=== PATIENT | female | born 1970 | race Caucasian/White ===

== ENCOUNTER 2017-04-07 15:03 | Emergency (ER) | payer MEDICAID ==
[~2017-04-07] VITALS: Ht 157.5 cm; Wt 79.4 kg
[~2017-04-07 15:03] MED LIST: AMOXICILLIN/CLA1 TA1 PO; LEVOTHYROXIN0.125 MG PO; MULTI VITAMINS1 TAB PO; PHENERGAN 25MG.25 M1 PO; VICODIN 5/500 T1 TAB PO
[2017-04-07] MEDS ORDERED: SERTRALINE25 MG PO (15:16)
[2017-04-07] MEDS ORDERED: LISINOPRIL5 MG PO (15:16)
--- NOTE | 2017-04-07 15:24 | Urgent Treatment Center Report ---
History of Present Issue Date/Time Seen by Provider 04/07/17 1521 Visit Reason Pt arrived:Walked Presenting Problem:PT STATES SHE FELL THIS MORNING AT 0800 AND HIT HER R PINKY ON THE DOOR FACING. STATES APPLYING ICE TO FINGER AND TAKING EXCEDERIN AT 1000 Location if Accident:Home Onset of symptoms date/time:04/07/17 or onset unknown for: Have you (or family members/close friends) recently traveled outside the [place]? N If Yes, where/when: Have you had exposure to infectious disease within the past month? TB? Other? Specify: Source patient, RN notes reviewed Exam Limitations no limitations Comment Patient presents with pain, bruising and swelling of right 5th digit. Fell around 0800 04/07/17 because she caught her toes on the underside of the step. She fell against the wall and pinky was pulled outwards. ALLERGIES Coded Allergies: No Known Allergies (04/07/17) Home Medications Reported Medications Levothyroxine Sodium (Levothyroxine 0.125MG) 0.115 MG PO DAILY Sertraline Hcl (Sertraline HCl) 25 MG PO DAILY Lisinopril 5 MG PO DAILY History Medical History General CAD? No Angina: No OR: No Hypertension? Yes Hyperlipidemia? No CHF? No DVT? No PE? No COPD? No Asthma? No Anemia? No GERD? No Gastric ulcers? No GI Bleed? No Hernia? No Thyroid Problems? Yes Hypothyroidism? Yes CVA? No Seizures? No Diabetes? No Renal Insuffiency? No UTI? No Stones? No BPH? No GB Disease: Yes Nephritic Syndrome? No Asplenia? No Hepatitis? No Sickle Cell Disease? No Arthritis? No Migraines? No Cataracts? No Glaucoma? No MRSA? No HIV? No TB? No Anxiety? No Cancer? No Immunization HX DT/Tetanus 01/28/10 Flu LAST YEAR Pneumonia NEVER Surgical Hx Previous Surgery?Y TUBAL LIGATION CERVIC. ABLASION 02-08-07 [place] LASIK EYE SURGERY Family History Family HX Diabetes No CAD Yes Hypertension No Cancer No TB No Social History Smoking Hx Smoker: Never Smoker Tobacco: No Alcohol Alcohol: No Review of Systems All Other Systems Reviewed and Negative Musculoskeletal see HPI, joint pain Physical Exam Vital Signs Vital Signs Date Time Temp Pulse Resp B/P Pulse O2 O2 Flow FiO2 Ox Delivery Rate 04/07 1514 97.7 79 18 118/81 97 General Appearance normal appearance Respiratory Status No: respiratory distress. Cardiovascular regular rate/rhythm Extremities right 5th digit bruised and swollen with painful palpation and ROM of both the DIP and PIP joints Neurologic alert, oriented x 3 Medical Decision Making LABS/Meds/Orders Pt receiving controlled substance in ED? No Results/Orders Orders Procedure Date/time Status HAND-RT 3 VIEWS 04/07 1519 Active XRAY/CT/US XRAY/CT/US XRAY finger(s) XR interpretation by reviewed by me (no fracture) Xray Results no fracture seen Departure Departure Time of Disposition 1537 Disposition DC Home or Self Care(routine) Clinical Impression Primary Impression: Injury of right little finger Qualifiers: Encounter type: initial encounter Qualified Code: S69.91XA - Unspecified injury of right wrist, hand and finger(s), initial encounter Condition STABLE Referrals Kasandra PAIGE,Calixto Collazo (Family) Patient Instructions DI for Finger Sprain Additional Instructions f/u with PCP if not improving & for official Xray results Discharge Counseling Counseled pt/family regarding diagnosis, test results, home care, follow up needs at 1530
[2017-04-07 15:46] VITALS: BP 118/81
--- NOTE | 2017-04-07 17:36 | RADIOLOGY REPORT PS360 ---
HAND-RT 3 VIEWS HISTORY: Pain following injury FELL/HIT HAND ON DOOR FACING ORDERING PHYSICIAN: MINDI SINGH PATIENT AGE: 46 years COMPARISON: None FINDINGS: No fracture or dislocation. No lytic or blastic change. There is normal mineralization. The joint spaces are well-preserved. No significant degenerative/arthritic changes. No erosive changes evident. IMPRESSION: Negative, no acute finding
== END 2017-04-07 15:49 | disposition home or self-care (01) ==
LOC: UTC 15:03
DX: S69.91XA Unspecified injury of right wrist, hand and finger(s), initial encounter (principal); I10 Essential (primary) hypertension; W01.198A Fall on same level from slipping, tripping and stumbling with subsequent striking against other object, initial encounter; Y92.009 Unspecified place in unspecified non-institutional (private) residence as the place of occurrence of the external cause

== ENCOUNTER 2017-07-05 14:49 | Emergency (ER) | payer MEDICAID ==
[~2017-07-05] VITALS: Ht 157.5 cm; Wt 77.1 kg
[~2017-07-05 14:49] MED LIST changes: +LISINOPRIL5 MG PO; +SERTRALINE25 MG PO
[2017-07-05] MEDS ORDERED: NEXIUM20 MG PO (15:05)
--- OUTSIDE RECORDS SUMMARY | 2017-07-05 15:11 | External Medical Summary Rpt | CCD ---
Author Author , TERENCE PRATT Address Unknown Phone Care Team Providers Care Overnight Babysitter Name Role Phone [facility] Unavailable Unavailable [place], [facility], Unavailable Unavailable [facility] Unavailable Unavailable [facility], [facility] Unavailable Unavailable [facility], [facility] Unavailable [facility], [facility], Unavailable Unavailable [facility] Unavailable Unavailable [facility], [facility] Unavailable [facility]available [facility] , [facility], Unavailable Unavailable [facility] Purpose Continuity of Care Document - 09-17-2013 through 2016 Problems Code Diagnosis DOS Provider Status H9313 TINNITUS 04-11-2017 [facility] R51 HEADACHE 04-11-2017 [facility] [id number] STRAIN UNS 04-11-2017 [facility] WRIST HAND LVL RT HAND INIT I10 ESSENTIAL 04-07-2017 [facility] HYPERTENSIO INC N [id number] PAIN IN 04-07-2017 [place] [facility] [id number] UNSPECIFIED 04-07-2017 [facility] WRIST HAND INC FINGERS INITIAL H903 SENSORINEUR 03-22-2017 [facility] AL HEARING PHYSICIANS LOSS GROUP BILATERAL E039 HYPOTHYROID 01-30-2017 [facility] ISM [facility] UNSPECIFIED [id number] ENCOUNTER 01-30-2017 [facility] FOR [facility] SCREENING FOR LIPOID DISORDERS [id number] PAIN IN 12-06-2016 [place] [facility]ES [facility] K120 RECURRENT 11-01-2016 [facility] ORAL ASSOCIATES APHTHAE N6002 SOLITARY 08-08-2016 [place] CYST OF MEDICAL LEFT BREAST IMAGING ASS R928 OTH ABNORM 08-08-2016 [place] [facility] INCONCLUSIV [facility]ING ASS E FIND ON DX IMAG BREAST Z1231 ENCOUNTER 01-19-2016 [place] S[facility]ENING MEDICAL MAMMO MALIG IMAGING ASS NEOPLASM BREAST Z124 ENCOUNTER 01-18-2016 LABORATORY OTHER [facility] OF SCREENING [facility] MALIG NEOPLASM CERVIX B029 ZOSTER 12-13-2015 [facility] WITHOUT ASSOCIATES COMPLICATIO NS J309 ALLERGIC 10-31-2015 [facility] RHINITIS PHYSICIANS UNSPECIFIED GROUP R05 COUGH 10-31-2015 [facility] PHYSICIANS GROUP J020 STREPTOCOCC 07-10-2015 [facility] 13388 OTHER 04-02-2015 [place] ABNORMAL MEDICAL FINDING IMAGING ASS RADIOLOGICA L EXAM BREAST 3558 UNSPECIFIED 03-29-2015 [facility] MONONEURITI S OF LOWER LIMB 70239 CALCANEAL 03-29-2015 [place] SPUR [facility] 89422 PLANTAR 03-29-2015 [place] FASCIAL [facility] FIBROMATOSI IMAGING ASS S 2449 UNSPECIFIED 03-25-2015 [facility] HYPOTHYROID LA ISM V7612 OTHER 10-02-2014 [place] SCREENING [facility]ICAL MAMMOGRAM [facility] 24924 ESOPHAGEAL 09-23-2014 [facility] INC V7791 SCREENING 09-23-2014 [facility] DISORDERS INC 96203 OTHER 07-29-2014 [facility] SPECIFIED PHYSICIANS VIRAL GROUP INFECTION CCE & UNS SITE 7245 UNSPECIFIED 06-24-2014 [facility] BACKACHE ASSOCIATES 07370 SPASM OF 06-24-2014 [facility] MUSCLE ASSOCIATES 4610 ACUTE 12-15-2013 [facility] MAXILLARY PHYSICIANS SINUSITIS GROUP 3540 CARPAL 10-06-2013 [facility] TUNNEL ASSOCIATES SYNDROME 13085 PAIN IN 10-06-2013 [facility] JOINT, BLESSING ANKLE AND FOOT 68707 LATERAL 10-06-2013 [facility] EPICONDYLIT ASSOCIATES IS OF ELBOW 7295 PAIN IN 10-06-2013 [facility] TISSUES OF INC LIMB 4619 ACUTE 09-30-2013 [facility] SINUSITIS, PHYSICIANS UNSPECIFIED GROUP 2452 CHRONIC 09-17-2013 [facility] THYROIDITIS Medications Na ND Rx Da Fi Fi Am Da Di Ph RX Ph St me C No te ll ll ou ys ag ar # ys at rm s nt no ma ic us Or Da si cy ia de te s n re d LI 68 09 10 30 30 00 CL Ac SI 18 -2 -2 .0 00 IN ti NO 00 5- 0- 00 00 IC ve RI 98 20 20 44 IL 10 17 17 06 PH 3 85 AR 20 MA CY MG TA BL ET SE 65 09 10 30 30 00 CL Ac RT 86 -2 -2 .0 00 IN ti RA 20 5- 0- 00 00 IC ve LI 01 20 20 43 NE 30 17 17 52 PH 5 75 AR HC MA L CY 10 0 MG TA BL ET LE 00 09 10 30 30 00 CL Ac VO 37 -2 -2 .0 00 IN ti TH 81 5- 0- 00 00 IC ve YR 80 20 20 43 OX 77 17 17 52 PH IN 7 74 AR E JERALD 88 CY MC G TA BL ET LE 00 08 09 30 30 00 CL Ac VO 37 -2 -2 .0 00 IN ti TH 81 6- 2- 00 00 IC ve YR 80 20 20 43 OX 77 17 17 52 PH IN 7 74 AR E JERALD 88 CY MC G TA BL ET SE 65 08 09 30 30 00 CL Ac RT 86 -2 -2 .0 00 IN ti RA 20 6- 2- 00 00 IC ve LI 01 20 20 43 NE 30 17 17 52 PH 5 75 AR HC MA L CY 10 0 MG TA BL ET LI 68 08 09 30 30 00 CL Ac SI 18 -2 -2 .0 00 IN ti NO 00 8- 2- 00 00 IC ve RI 98 20 20 44 IL 10 17 17 06 PH 3 85 AR 20 MA CY MG TA BL ET SE 16 07 08 30 30 00 CL Ac RT 72 -2 -2 .0 00 IN ti RA 90 7- 5- 00 00 IC ve LI 21 20 20 43 NE 71 17 17 52 PH 6 75 AR HC MA L CY 10 0 MG TA BL ET LE 00 07 08 30 30 00 CL Ac VO 37 -2 -2 .0 00 IN ti TH 81 7- 5- 00 00 IC ve YR 80 20 20 43 OX 77 17 17 52 PH IN 7 74 AR E JERALD 88 CY MC G TA BL ET LI 68 07 08 30 30 00 CL Ac SI 18 -2 -1 .0 00 IN ti NO 00 0- 8- 00 00 IC ve RI 98 20 20 43 IL 10 17 17 44 PH 3 82 AR 20 MA CY MG TA BL ET LE 00 06 07 30 30 00 CL Ac VO 37 -2 -2 .0 00 IN ti TH 81 8- 1- 00 00 IC ve YR 80 20 20 43 OX 77 17 17 52 PH IN 7 74 AR E JERALD 88 CY MC G TA BL ET SE 16 06 07 30 30 00 CL Ac RT 72 -2 -2 .0 00 IN ti RA 90 8- 1- 00 00 IC ve LI 21 20 20 43 NE 71 17 17 52 PH 6 75 AR HC MA L CY 10 0 MG TA BL ET LI 68 06 30 30 00 CL Ac SI 18 -2 -1 .0 00 IN ti NO 00 0- 4- 00 00 IC ve RI 98 20 20 43 IL 10 17 17 44 PH 3 82 AR 20 MA CY MG TA BL ET SE 68 05 30 30 00 WA Ac RT 64 -2 -2 .0 00 L- ti RA 50 7- 3- 00 07 MA ve LI 52 20 20 49 RT NE 35 17 17 02 4 92 PH HC AR L MA 10 CY 0 MG #5 91 TA BL ET LE 00 05 30 30 00 WA Ac VO 78 -2 -2 .0 00 L- ti TH 15 7- 3- 00 07 MA ve YR 18 20 20 49 RT OX 39 17 17 02 IN 2 93 PH E AR 88 MA CY MC G #5 TA 91 BL ET LE 00 04 30 30 00 WA Ac VO 78 -2 -1 .0 00 L- ti TH 15 6- 9- 00 07 MA ve YR 18 20 20 46 RT OX 39 17 17 63 IN 2 13 PH E AR 88 MA CY MC G #5 TA 91 BL ET SE 68 04 30 30 00 WA Ac RT 64 -1 -1 .0 00 L- ti RA 50 7- 2- 00 07 MA ve LI 52 20 20 44 RT NE 35 17 17 34 4 85 PH HC AR L MA 10 CY 0 MG #5 91 TA BL ET LE 00 10 14 30 30 00 WA Ac VO 78 -2 -2 .0 00 L- ti TH 15 6- 1- 00 07 MA ve YR 18 20 20 46 RT OX 39 17 17 63 IN 2 13 PH E AR 88 MA CY MC G #5 TA 91 BL ET SE 68 10 14 30 30 00 WA Ac RT 64 -1 -0 .0 00 L- ti RA 50 1- 7- 00 07 MA ve LI 52 20 20 44 RT NE 35 17 17 34 4 85 PH HC AR L MA 10 CY 0 MG #5 91 TA BL ET LE 00 09 15 30 30 00 WA Ac VO 78 -2 -1 .0 00 L- ti TH 15 2- 7- 00 07 MA ve YR 18 20 20 46 RT OX 39 17 17 63 IN 2 13 PH E AR 88 MA CY MC G #5 TA 91 BL ET LE 00 08 14 30 30 00 WA Ac VO 78 -2 -1 .0 00 L- ti TH 15 3- 7- 00 07 MA ve YR 18 20 20 46 RT OX 39 17 17 63 IN 2 13 PH E AR 88 MA CY MC G #5 TA 91 BL ET SE 68 01 02 30 30 00 WA Ac RT 64 -2 -1 .0 00 L- ti RA 50 3- 7 00 07 MA ve LI 48 20 20 44 RT NE 97 17 17 34 0 85 PH HC AR L MA 10 CY 0 MG #5 91 TA BL ET Encounters Encounter Start End Date Code Location Performer Type Date [facility] RE[facility]I - 7 7 [facility] RE[facility]I - 7 7 [facility] RE[facility] - 6 6 [facility] - 6 6 [facility] - 5 5 [facility] - 5 5 [facility] - 5 5 [facility] - 5 5 [facility] RE[facility]I - 4 4 [facility] - 4 4 [facility]
--- OUTSIDE RECORDS SUMMARY | 2017-07-05 15:11 | External Medical Summary Rpt | CCD ---
Author Author , TERENCE PRATT Address Unknown Phone [email or web address] Team Providers Care [employer] Superintendent Name Role Phone [facility] Unavailable Unavailable [place], [facility], Unavailable Unavailable [facility] Unavailable Unavailable [facility], [facility] Unavailable Unavailable INC, [facility] Unavailable [facility], [facility], Unavailable Unavailable [facility] Unavailable Unavailable [facility], [facility] Unavailable Unavailable [facility] , [facility], Unavailable Unavailable [facility] Purpose Continuity of Care Document - 09-17-2013 through 2016 Problems Code Diagnosis DOS Provider Status H9313 TINNITUS 04-11-2017 [facility] R51 HEADACHE 04-11-2017 [facility] [id number] STRAIN UNS 04-11-2017 [facility] WRIST HAND LVL RT HAND INIT I10 ESSENTIAL 04-07-2017 [facility] HYPERTENSIO INC N P62630 PAIN IN 04-07-2017 [place] [facility] [id number] UNSPECIFIED 04-07-2017 [facility] WRIST HAND INC FINGERS INITIAL H903 SENSORINEUR 03-22-2017 [facility] AL HEARING PHYSICIANS LOSS GROUP BILATERAL E039 HYPOTHYROID 01-30-2017 [facility] UNSPECIFIED O11377 ENCOUNTER 01-30-2017 [facility] SCREENING FOR LIPOID DISORDERS W44465 PAIN IN 12-06-2016 [place] [facility] K120 RECURRENT 11-01-2016 [facility] ORAL ASSOCIATES APHTHAE N6002 SOLITARY 08-08-2016 [place] [facility] MEDICAL LEFT BREAST IMAGING ASS R928 OTH ABNORM 08-08-2016 [place] [facility] INCONCLUSIV [facility]ING ASS E FIND ON DX IMAG BREAST Z1231 ENCOUNTER 01-19-2016 [place] SCREEN[facility] MEDICAL MAMMO MALIG IMAGING ASS NEOPLASM BREAST Z124 ENCOUNTER 01-18-2016 LAB[facility]ATORY OTHER [facility] OF SCREENING [facility] MALIG NEOPLASM CERVIX B029 ZOSTER 12-13-2015 [facility] WITHOUT ASSOCIATES COMPLICATIO NS J309 ALLERGIC 10-31-2015 [facility] RHINITIS PHYSICIANS UNSPECIFIED GROUP R05 COUGH 10-31-2015 [facility] PH[facility]ANS GROUP J020 STREPTOCOCC 07-10-2015 [facility] 40054 OTHER 04-02-2015 [place] ABNORMAL MEDICAL FINDING IMAGING ASS RADIOLOGICA L EXAM BREAST 3558 UNSPECIFIED 03-29-2015 [facility] MONONEURITI S OF LOWER LIMB 41216 CALCANEAL 03-29-2015 [place] [facility] 31385 PLANTAR 03-29-2015 [place] [facility] FIBROMATOSI IMAGING ASS S 2449 UNSPECIFIED 03-25-2015 [facility] HYPOTHYROID LA ISM V7612 OTHER 10-02-2014 [place] SCRE[facility] MAMMOGRAM IM[facility]ING ASS 63487 ESOPHAGEAL 09-23-2014 [facility] INC V7791 SCREENING 09-23-2014 [facility] DISORDERS INC 72452 OTHER 07-29-2014 [facility] SPECIFIED PHYSICIANS VIRAL GROUP INFECTION CCE & UNS SITE 7245 UNSPECIFIED 06-24-2014 [facility] BACKACHE ASSOCIATES 53460 SPASM OF 06-24-2014 [facility] MUSCLE ASSOCIATES 4610 ACUTE 12-15-2013 [facility] MAXILLARY PHYSICIANS SINUSITIS GROUP 3540 CARPAL 10-06-2013 [facility] TUNNEL ASSOCIATES SYNDROME 29452 PAIN IN 10-06-2013 [facility] JOINT, BLESSING ANKLE AND FOOT 59199 LATERAL 10-06-2013 [facility] EPICONDYLIT ASSOCIATES IS OF ELBOW 7295 PAIN IN 10-06-2013 [facility] TISSUES OF INC LIMB 4619 ACUTE 09-30-2013 [facility] SINUSITIS, PHYSICIANS UNSPECIFIED GROUP 2452 CHRONIC 09-17-2013 [facility] THYROIDITIS Medications Na ND Rx Da Fi [...] 00 5- 0- 00 00 IC ve NE 98 20 20 44 IL 10 17 [...] 00 8- 2- 00 00 IC ve NE 98 20 20 44 IL 10 17 [...] 00 0- 8- 00 00 IC ve NE 98 20 20 43 IL 10 17 [...] 00 0- 4- 00 00 IC ve NE 98 20 20 43 IL 10 17 [...] End Date Code Location Performer Type Date [facility] RE[facility]I - 7 7 [facility] REJI - 7 7 [facility] RE[facility]I - 6 6 [facility] REJI [facility] 6 6 [facility] REJI - 5 5 [facility] REJI - 5 5 [facility] REJI - 5 5 [facility] RE[facility]I - 5 5 [facility] RE[facility]I - 4 4 [facility] - 4 4 [facility]
--- OUTSIDE RECORDS SUMMARY | 2017-07-05 15:12 | External Medical Summary Rpt | CCD ---
Author Author , TERENCE Organization TERENCE Address Unknown Phone [email or web address] Care Team Providers Care Project Lead Name Role Phone [facility] Unavailable Unavailable [place], [facility] [place] [facility], Unavailable Unavailable [facility] Unavailable Unavailable [facility], [facility] Unavailable Unavailable INC, [facility] Unavailable [facility], Unavailable Unavailable [facility] Unavailable Unavailable [facility], [facility] Unavailable Unavailable [facility], [facility], Unavailable Unavailable [facility] Purpose Continuity of Care Document - 09-17-2013 through 2016 Problems Code Diagnosis DOS Provider Status H9313 TINNITUS 04-11-2017 [facility] R51 HEADACHE 04-11-2017 [facility] [id number] STRAIN UNS 04-11-2017 [facility] WRIST HAND LVL RT HAND INIT I10 ESSENTIAL 04-07-2017 [facility] HYPERTENSIO INC N D74768 PAIN IN 04-07-2017 [facility] K5926HB UNSPECIFIED 04-07-2017 [facility] WRIST HAND INC FINGERS INITIAL H903 SENSORINEUR 03-22-2017 [facility] AL HEARING PHYSICIANS LOSS GROUP BILATERAL E039 HYPOTHYROID 01-30-2017 [facility] ISM [facility] UNSPECIFIED H12745 ENCOUNTER 01-30-2017 [facility] FOR [facility]IATES SCREENING FOR LIPOID DISORDERS D89472 PAIN IN 12-06-2016 [facility] [facility] K120 RECURRENT 11-01-2016 [facility] ORAL ASSOCIATES APHTHAE N6002 SOLITARY 08-08-2016 [facility] CYST [facility] MEDICAL LEFT BREAST IMAGING ASS R928 OTH ABNORM 08-08-2016 [place] [facility] IN[facility]CLUSIV [facility]ING ASS E FIND ON DX IMAG BREAST Z1231 ENCOUNTER 01-19-2016 [facility] S[facility] MEDICAL MAMMO MALIG IMAGING ASS NEOPLASM BREAST Z124 ENCOUNTER 01-18-2016 LABORATORY OTHER [facility] OF SCREENING [facility] MALIG NEOPLASM CERVIX B029 ZOSTER 12-13-2015 [facility] WITHOUT ASSOCIATES COMPLICATIO NS J309 ALLERGIC 10-31-2015 [facility] RHINITIS PHYSICIANS UNSPECIFIED GROUP R05 COUGH 10-31-2015 [facility] PHYSICIANS GROUP J020 STREPTOCOCC 07-10-2015 [facility] 80431 OTHER 04-02-2015 [place] ABNORMAL MEDICAL FINDING IMAGING ASS RADIOLOGICA L EXAM BREAST 3558 UNSPECIFIED 03-29-2015 [facility] MONONEURITI S OF LOWER LIMB 41498 CALCANEAL 03-29-2015 [facility] SPUR [facility] 94674 PLANTAR 03-29-2015 [facility] FASCIAL [facility] FIBROMATOSI IMAGING ASS S 2449 UNSPECIFIED 03-25-2015 [facility] HYPOTHYROID LA ISM V7612 OTHER 10-02-2014 [place] SCREENING MEDICAL MAMMOGRAM IMAGING ASS 84747 ESOPHAGEAL 09-23-2014 [facility] INC V7791 SCREENING 09-23-2014 [facility] DISORDERS INC 96312 OTHER 07-29-2014 [facility] SPECIFIED PHYSICIANS VIRAL GROUP INFECTION CCE & UNS SITE 7245 UNSPECIFIED 06-24-2014 [facility] BACKACHE ASSOCIATES 99410 SPASM OF 06-24-2014 [facility] MUSCLE ASSOCIATES 4610 ACUTE 12-15-2013 [facility] MAXILLARY PHYSICIANS SINUSITIS GROUP 3540 CARPAL 10-06-2013 [facility] TUNNEL ASSOCIATES SYNDROME 11606 PAIN IN 10-06-2013 [facility] JOINT, BLESSING ANKLE AND FOOT 35203 LATERAL 10-06-2013 [facility] EPICONDYLIT ASSOCIATES IS OF ELBOW 7295 PAIN IN 10-06-2013 [facility] TISSUES OF INC LIMB 4619 ACUTE 09-30-2013 [facility] SINUSITIS, PHYSICIANS UNSPECIFIED GROUP 2452 CHRONIC 09-17-2013 [facility] THYROIDITIS Medications Na ND Rx [...] 00 5- 0- 00 00 IC ve SC 98 20 20 44 IL 10 17 [...] 0 MG TA BL ET LE 00 08 09 30 30 00 CL Ac VO 37 -2 -2 .0 00 IN ti TH 81 6- 2- 00 00 IC ve YR 80 20 20 43 OX 77 17 17 52 PH IN 7 74 AR E JERALD 88 CY MC G TA BL ET LI 68 08 09 30 30 00 CL Ac SI 18 -2 -2 .0 00 IN ti NO 00 8- 2- 00 00 IC ve SC 98 20 20 44 IL 10 17 [...] 00 0- 8- 00 00 IC ve SC 98 20 20 43 IL 10 17 [...] MG TA BL ET LI 68 06 07 30 30 00 CL Ac SI 18 -2 -1 .0 00 IN ti NO 00 0- 4- 00 00 IC ve SC 98 20 20 43 IL 10 17 [...] #5 91 TA BL ET LE 00 03 30 30 00 WA Ac VO 78 [...] #5 91 TA BL ET LE 00 02 30 30 00 WA Ac VO 78 [...] -1 .0 00 L- ti RA 50 07 MA ve LI 48 20 20 44 RT NE 97 17 17 34 0 85 PH HC AR L MA 10 CY 0 MG #5 91 TA BL ET Encounters Encounter Start End Date Code Location Performer Type Date [facility] REJI - 7 7 [facility] REJI - 7 7 [facility] RE[facility] - 6 6 [facility] RE[facility] - 6 6 [facility] REJI - 5 5 [facility] REJI - 5 5 [facility] RE[facility]I - 5 5 [facility] REJI [facility] 5 5 [facility] - 4 4 [facility] - 4 4 [facility]
--- OUTSIDE RECORDS SUMMARY | 2017-07-05 15:12 | External Medical Summary Rpt | CCD ---
Author Author , TERENCE Organization TERENCE Address Unknown Phone [email or web address] Providers Care Billing And Accounting Staff Assistant Name Role Phone [facility] Unavailable Unavailable [place], [facility], Unavailable Unavailable [facility] Unavailable Un[facility], [facility] Unavailable Unavailable INC, [facility] Unavailable [facility] Unavailable Unavailable [facility] Un[facility] Unavailable Unavailable [facility], Unavailable Unavailable [facility] Purpose Continuity of Care Document - 09-17-2013 through 2016 Problems Code Diagnosis DOS Provider Status H9313 TINNITUS 04-11-2017 [facility] R51 HEADACHE 04-11-2017 [facility] [id number] STRAIN UNS 04-11-2017 [facility] F [facility] T [facility] WRIST HAND LVL RT HAND INIT I10 ESSENTIAL 04-07-2017 [facility] HYPERTENSI[facility] INC N [id number] PAIN IN 04-07-2017 [facility] [id number] UNSPECIFIED 04-07-2017 [facility] WRIST HAND INC FINGERS INITIAL H903 SENSORINEUR 03-22-2017 [facility] AL HEARING [facility] LOSS GROUP BILATERAL E039 HYPOTHYROID 01-30-2017 [facility] ISM [facility] UNSPECIFIED X07714 ENCOUNTER 01-30-2017 [facility] FOR [facility] SCREENING FOR LIPOID DISORDERS Q45577 PAIN IN 12-06-2016 [facility] K120 RECURRENT 11-01-2016 [facility] ORAL [facility]ATES APHTHAE N6002 SOLITARY 08-08-2016 [place] LEFT BREAST [facility] R928 OTH ABNORM 08-08-2016 [place] [facility] E FIND ON DX IMAG BREAST Z1231 ENCOUNTER 01-19-2016 [facility]AMMO MALIG IMAGING ASS NEOPLASM BREAST Z124 ENCOUNTER 01-18-2016 [facility] SCREENING [facility] MALIG NEOPLASM CERVIX B029 ZOSTER 12-13-2015 [facility] WITHOUT ASSOCIATES COMPLICATIO NS J309 ALLERGIC 10-31-2015 [facility] RHINITIS PHYSICIANS UNSPECIFIED GROUP R05 COUGH 10-31-2015 [facility] J020 STREPTOCOCC 07-10-2015 [facility] 47969 OTHER 04-02-2015 [place]AL [facility]ING [facility] RADIOLOGICA L EXAM BREAST 3558 UNSPECIFIED 03-29-2015 [facility] MONONEURITI S OF LOWER LIMB 72086 CALCANEAL 03-29-2015 [facility]UR [facility] 39896 PLANTAR 03-29-2015 [place] FASCIAL [facility] FIBROMATOSI IMAGING ASS S 2449 UNSPECIFIED 03-25-2015 [facility] HYPOTHYROID [place] ISM V7612 OTHER 10-02-2014 [place] SCREENING [facility] MAMMOGRAM [facility] 96593 ESOPHAGEAL 09-23-2014 [facility] V7791 SCREENING 09-23-2014 [facility] LIPOID [facility] DISORDERS INC 89840 OTHER 07-29-2014 [facility] SPECIFIED PHYSICIANS VIRAL GROUP INFECTION CCE & UNS SITE 7245 UNSPECIFIED 06-24-2014 [facility] BACKACHE ASSOCIATES 48072 SPASM OF 06-24-2014 [facility] MUSCLE ASSOCIATES 4610 ACUTE 12-15-2013 [facility] MAXILLARY PHYSICIANS SINUSITIS GROUP 3540 CARPAL 10-06-2013 [facility] TUNNEL ASSOCIATES SYNDROME 10713 PAIN IN 10-06-2013 [facility], BLESSING ANKLE AND FOOT 67464 LATERAL 10-06-2013 [facility] EPICONDYLIT ASSOCIATES IS OF ELBOW 7295 PAIN IN 10-06-2013 [facility] TISSUES OF INC LIMB 4619 ACUTE 09-30-2013 [facility] SINUSITIS, PHYSICIANS UNSPECIFIED GROUP 2452 CHRONIC 09-17-2013 [facility] THYROIDITIS Medications Na ND Rx Da [...] 00 5- 0- 00 00 IC ve [place] 98 20 20 44 [place] 10 17 [...] 00 8- 2- 00 00 IC ve [place] 98 20 20 44 [place] 10 17 [...] 00 0- 8- 00 00 [place] ve [place] 98 20 20 43 [place] 10 17 [...] 00 0- 4- 00 00 [place] ve [place] 98 20 20 43 [place] 10 17 [...] End Date Code Location Performer Type Date [facility] RE[facility]I - 7 7 [facility] REJI - 7 7 [facility] REJ[facility] - 6 6 [facility] REJI - 6 6 [facility] REJI - 5 5 [facility] REJI - 5 5 [facility] REJI - 5 5 [facility] REJI - 5 5 [facility] REJI - 4 4 [facility] UNIVERSIT - 4 4 [facility]
--- OUTSIDE RECORDS SUMMARY | 2017-07-05 15:13 | External Medical Summary Rpt ---
Author Author TERENCE Sen, [employer] Organization [employer] Address Unknown Phone Unavailable
--- OUTSIDE RECORDS SUMMARY | 2017-07-05 15:13 | External Medical Summary Rpt | CCD ---
Demographics Preferred Language Latvian Marital Status Unknown Confucianist Affiliation Unknown Race Unknown Ethnic Group Unknown Author Author TERENCE Address Unknown Phone Immunization No patient found.
--- OUTSIDE RECORDS SUMMARY | 2017-07-05 15:13 | External Medical Summary Rpt | CCD ---
Demographics Preferred Language Turkish Marital Status Unknown Faith Affiliation Unknown Race Unknown Ethnic Group Unknown Author Author TERENCE Address Unknown Phone Immunization No patient found.
--- NOTE | 2017-07-05 15:16 | Emergency Room Report ---
History of Present Illness Time Seen by MD An Presenting Problem in Triage Pt arrived:Walked Presenting Problem:PT STATES SHE HAS SEVERE PAIN IN HER ABDOMEN WITH DIARRHEA STARTED YESTERDAY. 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 N Clinical Suspician of Infection? N Mental Status: 1 - Regular (Normal Baseline) Sepsis Risk:Low Sepsis Risk Have you (or family members/close friends) recently traveled outside the [place]? N If Yes, where/when: Have you had exposure to infectious disease within the past month? N TB? Other? Specify: 47 years old white female is status post cholecystectomy who developed abdominal pain followed by diarrhea she continues to be in pain. There is no vomiting, no dysuria no hematuria. Source patient, RN notes reviewed, family Exam Limitations no limitations ALLERGIES Coded Allergies: No Known Allergies (04/07/17) Home Medications Reported Medications Levothyroxine Sodium (Levothyroxine 0.125MG) 0.115 MG PO DAILY Esomeprazole Magnesium (Nexium) 20 MG PO DAILY Sertraline Hcl (Sertraline HCl) 25 MG PO DAILY Lisinopril 5 MG PO DAILY History Medical History General CAD? No Angina: No SD: No Hypertension? Yes Hyperlipidemia? No CHF? No DVT? No PE? No COPD? No Asthma? No Anemia? No GERD? No Gastric ulcers? No GI Bleed? No Hernia? No Thyroid Problems? Yes Hypothyroidism? Yes CVA? No Seizures? No Diabetes? No Renal Insuffiency? No End Stage Renal Disease? No UTI? No Stones? No BPH? No GB Disease: Yes Nephritic Syndrome? No Asplenia? No Hepatitis? No Sickle Cell Disease? No Arthritis? No Migraines? No Cataracts? No Glaucoma? No MRSA? No HIV? No TB? No Anxiety? No Cancer? No Immunization Hx DT/Tetanus 01/28/10 Flu LAST YEAR Pneumonia NEVER Surgical Hx Previous Surgery?Y TUBAL LIGATION CERVIC. ABLASION 02-08-07 [place] LASIK EYE SURGERY [employer]OR Hx LMP N/A Family History Family Hx Diabetes No CAD Yes Hypertension No Cancer No TB No Social History Smoking Hx Smoker: Never Smoker Tobacco: No Alcohol Alcohol: No Review of Systems All Other Systems Reviewed and Negative Constitutional no symptoms reported Eyes no symptoms reported ENT no symptoms reported. Respiratory no symptoms reported Cardiovascular no symptoms reported Gastrointestinal see HPI, abdominal pain, diarrhea Genitourinary no symptoms reported. Musculoskeletal no symptoms reported Skin no symptoms reported Psychiatric/Neurological no symptoms reported Physical Exam Vital Signs Vital Signs Date Time Temp Pulse Resp B/P Pulse O2 O2 Flow FiO2 Ox Delivery Rate 07/05 1644 98.2 70 18 115/78 95 07/05 1532 20 07/05 1457 98.1 76 18 139/95 96 - WBC >12,000 or <4,000 or 10% bands? 2 or more SIRS Criteria Met? B/P:139/95 MAP:109 Creatinine >2.0? UA output<0.5ml/kg/hr for 2 hrs? Platelet count >100,000? Lactate >2.0mmol/1? INR >1.2 or PTT > than 60 sec? Evidence of Organ Dysfunction? Provider documented clinical suspician of infection? N Sepsis Criteria Count: 0 Sepsis Risk: Low Sepsis Risk General Appearance normal appearance, WD/WN Eye Exam - bilateral eye normal exam, bilateral eye PERRL, bilateral eye EOMI Ear, Nose, Throat hearing grossly normal, normal ENT inspection Neck normal inspection, non-tender, supple, full range of motion Respiratory Status Yes: trachea midline, chest symmetrical, non tender chest. No: respiratory distress. Lung Sounds bilateral: normal breath sounds, lungs clear. Cardiovascular normal exam, regular rate/rhythm, no peripheral edema, no gallop, no JVD, no murmur, no rub, normal peripheral pulses Peripheral Pulses Pulses normal Yes Gastrointestinal normal bowel sounds, soft, no guarding, rebound, tenderness, will be as abdomen soft without guarding, RIGHT lower quadrant tenderness with rebound. No cross tenderness. Positive bowel sounds. 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 No Results/Orders Laboratory Tests 07/05/17 1540: Urine Color YELLOW, Urine Appearance CLEAR, Urine pH 5.5, Ur Specific [place] 1.010, Urine Protein NEGATIVE, Urine Ketones NEGATIVE, Urine Blood 1+ H, Urine Nitrate NEGATIVE, Urine Bilirubin NEGATIVE, Urine Urobilinogen 0.2, Ur Leukocyte Esterase NEGATIVE, Urine WBC 3-5, Ur Squamous Epith Cells 3-5, Urine Bacteria TRACE, Urine Mucus 2+, Urine Glucose NEGATIVE 07/05/17 1530: Sodium 143, Potassium 3.6, Chloride 106, Carbon Dioxide 31, BUN 12, Creatinine 0.9, Estimated Creat Clear 92, Estimated GFR (MDRD) 67, Glucose 109 H, Calcium 9.2, Total Bilirubin 0.3, AST 25, ALT 27, Alkaline Phosphatase 89, Troponin I < 0.02, Total Protein 8.2, Albumin 3.8, Globulin 4.4 H, Albumin/Globulin Ratio 0.9 L, Lipase 125, WBC 8.4, RBC 4.67, Hgb 14.4, Hct 43.3, MCV 92.8, RDW 13.1, Plt Count 334, MPV 6.9 L, Gran % 73.2, Gran # 6.2, Lymphocytes % 17.7, Monocytes % 4.9, Eosinophils % 3.7, Basophils % 0.4, Lymphocytes # 1.5, Monocytes # 0.4, Eosinophils # 0.3, Basophils # 0.0, PUBS MCHC 33.1, MCH 30.8 Current Medication Orders Sig/Eduar Start time Last Medication Dose Route Stop Time Status Admin Iopamidol 75 ML ONCE ONE 07/05 1715 UNV IV 07/05 1716 Sodium Chloride 10 ML PRN PRN 07/05 1715 UNV IV 07/05 1836 Sodium Chloride 10 ML PRN PRN 07/05 1600 AC IV 07/06 1555 Ketorolac 30 MG ONCE ONE 07/05 1530 DC 07/05 Tromethamine IV 07/05 1531 1532 Ketorolac 0 .STK-MED ONE 07/05 1530 DC Tromethamine .ROUTE Orders Procedure Date/time Status DIET-NOTHING BY MOUTH 07/05 D Active IV SALINE LOCK 07/[address] ABD W/RLQ PAIN REQ 07/05 151 Complete URINALYSIS/COMPLETE 07/05 151 Complete TROPONIN I 07/05 1517 Complete LIPASE 07/05 1517 Complete DIARRHEA PANEL, PCR 07/05 1517 Active CBC WITH AUTO DIFF 11/23 1517 Complete CHEM 12 PROFILE 07/[address] ABD & PELVIS W/ CONTRAST 07/05 UNK Active Departure Departure Time of Disposition 170 Disposition DC Home or Self Care(routine) Clinical Impression Primary Impression: Diarrhea Secondary Impressions: Enteritis, Mesenteric adenitis Condition STABLE Referrals Kasandra PAIGE,Calixto Collazo (Family) Additional Instructions I fully discussed the report with the patient, the reasonable interpretation is an enetritis secondary to a viral illness, although crhon;s can not be completely excluded. 1- She still needs a stool study. 2- Gorade and BRAT diet. 3- return as needed. 4- follow up with Dr salazar in am . to discuss her ct scan . Discharge Counseling Counseled pt/family regarding diagnosis, test results, medications/RX, follow up needs Prescriptions Current Visit Scripts Loperamide HCl (Imodium A-D) 2 MG PO Q6HP PRN diarrhea #10 CAPSULE Dicyclomine Hcl (Bentyl 10MG) 10 MG PO Q6HP PRN abd cramps #10 CAP ED Critical Care Critical Care No If Critical Care minutes are documented, the time involved in the performance of seperately reportable procedures was not counted toward critical care time documented. I directly delivered medical care to this critically ill and/or injured patient. Timely evaluation and treatment was necessary to address the significant organ system(s) dysfunction present in this patient. at 1707
[2017-07-05 15:37] LABS: HEMOGLOBIN 14.4 g/dL (12.2-16.2); LYMPH # 1.5 K/mm3 (0.7-4.5); LYMPH % 17.7 % (10-50.0)
[2017-07-05 15:47] LABS: URINE BILIRUBIN - DIPSTICK NEGATIVE (NEG); URINE BLOOD 1+ (NEG)
[2017-07-05 15:50] LABS: BUN 12 mg/dL (7-18); GFR (ESTIMATED) 67 ML/MIN (59-)
[2017-07-05] MEDS ORDERED: BENTYL10 MG PO (17:07)
[2017-07-05] MEDS ORDERED: IMODIUM A-D2 M3 PO (17:07)
[2017-07-05 17:12] VITALS: BP 115/78
--- NOTE | 2017-07-06 08:19 | RADIOLOGY REPORT PS360 ---
CT ABD PELVIS W/ CONTRAST COMPARISON: CT scan the abdomen stone protocol 01/04/2009 HISTORY: Abdominal pain TECHNIQUE: Multiple axial scans obtained from hemidiaphragms to the pelvic floor and were performed with IV contrast only. Sagittal and coronal reformats were evaluated as well. FINDINGS: The lower lung miles are clear. There is a small hiatal hernia. The liver spleen stomach and pancreas appear normal. There has been a previous cholecystectomy. The adrenal glands are normal. The kidneys are normal in size and show symmetrical function both appearing normal. The proximal small bowel appears normal. There are couple loops of distal small bowel with diffuse wall thickening which was not seen on the previous exam. This extends to and includes the terminal ileum and possible early Crohn's disease is a consideration. I do not definitely identify the appendix but there are no pericecal inflammatory changes. There is a tiny umbilical hernia containing fat only. There is moderate scattered stool throughout the colon. The uterus is normal, the bladder is partially decompressed. There is a moderate fluid collection in the lower pelvis above the level of the uterus and urinary bladder IMPRESSION: Abnormal diffuse wall thickening of the terminal ileum and distal small bowel associated with a moderate amount of free fluid in Crohn's disease must be consideration, I agree the [facility] report
== END 2017-07-05 17:12 | disposition home or self-care (01) ==
LOC: ER 14:49
PROVIDERS: Emergency Medicine
DX: K52.9 Noninfective gastroenteritis and colitis, unspecified (principal); I88.0 Nonspecific mesenteric lymphadenitis; I10 Essential (primary) hypertension; E03.9 Hypothyroidism, unspecified
CPT/HCPCS: Q9967

== ENCOUNTER → 2017-07-09 | Outpatient (CLI) | payer MEDICAID ==
[~2017-07-09] MED LIST changes: +BENTYL10 MG PO; +IMODIUM A-D2 M3 PO; +NEXIUM20 MG PO
[2017-07-09 10:20] LABS: AEROMONAS NOT DETECTED (NOT DETECTE); ASTROVIRUS NOT DETECTED (NOT DETECTE); CYCLOSPORA CAYETANENSIS NOT DETECTED (NOT DETECTE); E COLI O157 NOT DETECTED (NOT DETECTE); ENTEROAGGREGATIVE E COLI NOT DETECTED (NOT DETECTE); ENTEROPATHOGENIC E COLI NOT DETECTED (NOT DETECTE); ENTEROTOXIGENIC E COLI NOT DETECTED (NOT DETECTE); NOROVIRUS NOT DETECTED (NOT DETECTE); SAPOVIRUS NOT DETECTED (NOT DETECTE); SHIGA-LIKE TOXIN PROD. E COLI NOT DETECTED (NOT DETECTE); SHIGELLA/ENTEROINVASIVE E COLI NOT DETECTED (NOT DETECTE); VIBRIO CHOLERAE NOT DETECTED (NOT DETECTE)
== END ==
LOC: LAB 10:16
PROVIDERS: Student in an Organized Health Care Education/Training Program
DX: R19.7 Diarrhea, unspecified (principal)